=== PATIENT | male | born 1970 | race Caucasian/White ===

== ENCOUNTER 2017-01-29 01:28 | Emergency (ER) | payer SELFPAY ==
[2017-01-29 01:47] VITALS: BP 136/79; PULSE 95; BMI 32.6
[2017-01-29] MEDS ORDERED: SODIUM CHLORIDE 500 ML IV STA (03:03)
[2017-01-29] MEDS ORDERED: methylPREDNISolone NA SUCC 125 MG/2 ML VIAL IVPB ONE (03:03)
[2017-01-29] MEDS ORDERED: KETOROLAC TROMETHAMINE 30 MG/1 ML VIAL IVPUSH ONE (03:03)
[2017-01-29] MEDS ORDERED: KETOROLAC TROMETHAMINE 30 MG/1 ML VIAL ONE (03:06)
[2017-01-29] MEDS ORDERED: methylPREDNISolone NA SUCC 125 MG/2 ML VIAL ONE (03:06)
[2017-01-29] MEDS ORDERED: ONDANSETRON 4 MG/2 ML VIAL IVPUSH ONE (03:10)
[2017-01-29] MEDS ORDERED: ONDANSETRON 4 MG/2 ML VIAL ONE (03:24)
--- NOTE | 2017-01-29 04:03 | PDOC ---
History of Present Illness - General Chief Complaint: Back Pain Stated Complaint: BACK PAIN Time Seen by Provider: 01/29/17 01:48 History Source: Patient, Family, [employer] Used Exam Limitations: Language Barrier - History of Present Illness Initial Comments: 01/29/17 03:58 46yo Male patient w/PmHx: chronic back pain and back surgery (2014) presents to ED c/o left flank and nausea. Patient reports symptoms began last night. He reports participating in Physical Therapy- Once a week and is currently in pain management receiving inj to low back. Denies fever, CP, Abd pain, n/v/d or any other complaints at this time. Occurred: reports: this evening Severity: reports: moderate Pain Location: reports: back Method of Injury: No: unknown, assault, direct blow, fall, motor vehicle crash, other Modifying Factors: improves with: pain medication Loss of Consciousness: no loss of consciousness Associated Symptoms (Fall): nausea/vomiting Past History - Travel Traveled outside of the country in the last 30 days: No Close contact w/someone who was outside of country & ill: No - Past Medical History Allergies/Adverse Reactions: Allergies Allergy/AdvReac Type Severity Reaction Status Date / Time No Known Allergies Allergy Verified 01/29/17 01:42 - Psycho/Social/Smoking Cessation Hx Suicidal Ideation: No Smoking History: Never smoked Trauma Specific PMHX - Complaint Specific PMHX Arthritis: No Back Injury: Yes Neck Injury: No Hx Sacro Iliac Joint Dysfunction: No Review of Systems - Review of Systems Able to Perform ROS?: Yes Is the patient limited Latvian proficient: No Constitutional: No: Chills, Fever Cardiac (ROS): No: Chest Pain, Palpitations, Syncope ABD/GI: No: Constipated, Diarrhea, Nausea, Poor Appetite, Poor Fluid Intake, Vomiting : Yes: Flank Pain (Lt Flank Pain). No: Burning, Dysuria, Discharge, Frequency , Hematuria, Pain, Testicular Swelling Musculoskeletal: Yes: Back Pain All Other Systems: Reviewed and Negative *Physical Exam - Vital Signs Last Vital Signs Temp Pulse Resp BP Pulse Ox 95 H 18 136/79 97 01/29/17 01:39 01/29/17 01:39 01/29/17 01:39 01/29/17 01:39 - Physical Exam General Appearance: Yes: Nourished, Appropriately Dressed, Moderate Distress. No: Apparent Distress, Mild Distress, Severe Distress Neck: positive: Trachea midline, Supple. negative: Lymphadenopathy (R), Lymphadenopathy (L) Respiratory/Chest: positive: Lungs Clear, Normal Breath Sounds. negative: Chest Tender, Respiratory Distress, Accessory Muscle Use, Labored Respiration, Rapid RR Cardiovascular: positive: Regular Rhythm, Regular Rate Gastrointestinal/Abdominal: positive: Normal Bowel Sounds, Soft. negative: Distended, Guarding, Rebound, Tenderness Musculoskeletal: positive: Normal Inspection, CVA Tenderness, CVA Tenderness (L) , Decreased Range of Motion, Muscle Spasm. negative: CVA Tenderness (R), Vertebral Tenderness Extremity: positive: Normal Capillary Refill, Normal Inspection, Normal Range of Motion, Pelvis Stable. 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, Fully Oriented, Alert, Normal Mood/ Affect, Normal Response, Motor Strength 12/02 ED Treatment Course - RADIOLOGY Radiology Studies Ordered: Category Date Time Status ABDOMEN & PELVIS CT W/O CONTR [CT] Stat CT Scan 01/29/17 03:33 Taken - Medications Given in the ED: ED Medications Discontinued Medications Generic Name Dose Route Start Last Admin Trade Name Freq PRN Reason Stop Dose Admin Ketorolac Tromethamine 30 mg 01/29/17 03:03 01/29/17 03:10 Toradol Injection - IVPUSH 01/29/17 03:04 30 mg ONCE ONE Administration Methylprednisolone Sodium Succinate 125 mg 01/29/17 03:03 01/29/17 03:10 Solu-Medrol - IVPB 01/29/17 03:04 125 mg ONCE ONE Administration Ondansetron HCl 4 mg 01/29/17 03:10 01/29/17 03:10 Zofran Injection IVPUSH 01/29/17 03:11 4 mg NOW ONE Administration *DC/Admit/Observation/Transfer Diagnosis at time of Disposition: Chronic low back pain Qualifiers: Back pain laterality: left Sciatica presence: without sciatica Qualified Code(s ): M54.5 - Low back pain; G89.29 - Other chronic pain - Discharge Dispostion Disposition: HOME Condition at time of disposition: Improved Admit: No - Patient Instructions Printed Discharge Instructions: DI for Low Back Pain Additional Instructions: FOLLOW UP WITH PAIN MANAGEMENT. TAKE MEDICATIONS PRESCRIBED. RETURN IF SYMPTOMS WORSEN OR ANY CONCERNS FOR FURTHER EVALUATION. Print Language: ETHIOPIAN
[2017-01-29] MEDS ORDERED: diazePAM 5 MG TABLET PO ONE (05:32)
[2017-01-29] MEDS ORDERED: diazePAM 5 MG TABLET ONE (06:00)
== END 2017-01-29 06:00 | disposition home or self-care (01) ==
LOC: JER 01:28
PROC: 3E0333Z Introduction of Anti-inflammatory into Peripheral Vein, Percutaneous Approach (ICD-10-PCS; principal; 2017-01-29)
PROC: 3E0333Z Introduction of Anti-inflammatory into Peripheral Vein, Percutaneous Approach (ICD-10-PCS; 2017-01-29)
PROC: 3E033GC Introduction of Other Therapeutic Substance into Peripheral Vein, Percutaneous Approach (ICD-10-PCS; 2017-01-29)
DX: M54.5 Low back pain (principal); G89.29 Other chronic pain
CPT/HCPCS: 74176-TC; 99282-25